=== PATIENT | female | born 1945 | race Caucasian/White ===

== ENCOUNTER 2024-12-10 11:53 | Observation (INO) ==
--- NOTE | 2024-12-10 12:23 | XRay Report ---
XR chest 1V portable HISTORY: 79 years-old Female Chest pain, nonspecific COMPARISON: None TECHNIQUE: AP view of the chest FINDINGS: Cardiac silhouette is upper limits of normal in size. There is no pneumothorax, pleural effusion or a irspace consolidation. Bones of the chest appear grossly intact. IMPRESSION: No acute process. ACT 112: Negative or not required by law. The above report was generated using voice recognition software. It may contain grammatical, syntax o r spelling errors. Electronically signed by: Geremias Morgan M.D. 12/10/2024 12:21 PM
--- NOTE | 2024-12-10 12:29 | Emergency Department Note ---
Impression & Plan Chest pain ED Provider Note NAME: RYAN KUO AGE: 79 SEX: F : 1945 ARRIVES VIA: Walk-In INFORMANT: Patient, son ED PROVIDER(S): Ranjit Salvador MD CHIEF COMPLAINT: Chest pain MEDICAL DECISION MAKING: Patient presents due to concern for chest pain. Still active at the bedside. IV was established and blood work was obtained. Initial EKG without signs of obvious STEMI. Patient was ordered aspirin and nitro. Patient did have improvement in her pain from a 7 down to a 2. Patient was ordered 1 additional nitro. Given the patient's symptoms I did speak with the on-call hospitalist service I did speak with the resident physician Dr. Cochran with Dr. Villalba. Patient was admitted to the medicine service. Discussion w/ other healthcare providers: Dr. Cochran and Dr. Villalba inpatient medicine service Prior /Outside records reviewed: None Differential diagnosis: Cardiac ischemia, aortic dissection, pulmonary embolism, pneumothorax, pneumonia, pericarditis, myocarditis, GERD, cholecystitis, pancreatitis, musculoskeletal, as well as other pathologies were considered. Diagnostics, as interpreted by me: Patient reports that she did have a mammogram ordered but this has yet to be completed. ECG: Normal sinus rhythm, rate of 78, normal intervals, normal axis no ST elevations. Cardiac monitoring: An order was placed for continuous cardiac monitoring. The monitor shows a rate of 75 with sinus rhythm. Patient was placed on pulse oximetry Medical decision rules: Heart score Imaging studies: I informally interpreted the patient's chest x-ray does not show obvious pneumonia or pneumothorax with formal report to follow. HPI: Patient presents due to concern for chest pains. The patient states that this began about an hour ago while she was walking. The patient described as left-sided heaviness/tightness that did go to her arm and jaw. Patient denies any fevers or chills. No cough. The patient reports that she did have a stress test echo completed in [place] several years ago. The patient does not take any aspirin Plavix or atorvastatin. The patient does follow locally with [facility]. The patient does take S-Citalopram and GERD. The patient was unsure as to whether or not this was from her prior history of reflux. Patient denies any leg swelling or calf pain. No recent surgeries procedures or hospitalizations no recent prolonged car or plane travel. Patient reports that she typically will walk 7 kilometers daily. PAST MEDICAL HISTORY: See Below PAST SURGICAL HISTORY: See Below SOCIAL HISTORY: See Below HOME MEDICATIONS: See Below ALLERGIES: See Below VITALS: See Below PHYSICAL EXAMINATION: GENERAL: NAD, non-toxic. EYE EXAM: Normal conjunctiva. PERRL, no anisocoria and EOM's grossly intact w/o pain. OROPHARYNX: Moist mucus membranes, grossly normal dentition. NECK: Trachea midline, no stridor. Supple, no nuchal rigidity, no adenopathy, non-tender. No signs of meningismus. FROM of the neck with good chin to chest and neck extension. LUNGS: Clear to auscultation. Normal chest wall mechanics. HEART: NSR, no MRG. ABDOMEN: Abdomen soft, non-tender, no masses, no rebound or guarding. BACK: No CVA TTP. SKIN: No rashes and no bruising. UPPER EXTREMITIES: Upper extremities are grossly normal. LOWER EXTREMITIES: Grossly normal, no edema. Negative Homans' sign bilaterally. NEURO EXAM: Awake and alert, follows commands, no obvious facial asymmetry, normal speech, moves all 4 extremities. Past Med/Surg History Problem List (Updated 12/10/24 @ 18:47 by Ranjit Salvador MD) Chest pain (Acute) Medical History Depression History of herniated intervertebral disc 2021- ? cervical "states had a neck hernia"- full ROM Acid reflux Surgical History Hx of right cataract extraction (08/08/24) Hx of hemorrhoidectomy Hx of knee surgery bilat Social History Smoking Status: Former smoker Tobacco Type: Cigarettes Second Hand Exposure: No; Do You Dip or Chew Tobacco: No; Tobacco Cessation Education Requested by Patient: No Hx Alcohol Use: No Hx Substance Use: No Preferred Language: [place] Islander Communication Ability: greek Grease Man Required: No Beliefs That Will Affect Care: None Current Living Situation: Family Other Information That Helps Us Care for You: No Feels Safe at Home: Yes Safety Concerns: Feels Safe At This Time Assistive Devices: None Allergies Allergies Allergy/AdvReac Type Severity Reaction Status Date / Time No Known Allergies Allergy Verified 09/19/24 12:26 Home Meds Home Medications Medication Instructions Recorded Confirmed escitalopram oxalate 10 mg tablet 10 mg PO QAM 08/02/24 09/05/24 pantoprazole 20 mg tablet,delayed 20 mg PO QAM 08/02/24 09/05/24 release Results & Data (ED) Vital Signs Vital Signs - 24 hr 12/10/24 11:56 12/10/24 12:06 12/10/24 12:12 Temperature 36.4 C L Temperature Source Temporal Artery Scan Pulse Rate 84 Pulse Rate [Left Apical] Respiratory Rate 16 Respiratory Effort / Characteristics Non-Labored Spontaneous Respiratory Depth Normal Respiratory Pattern Blood Pressure [Left Arm] Blood Pressure Mean [Left Arm] Pulse Oximetry 97 95 98 Oxygen Delivery Method Room Air Room Air Room Air Sepsis Recent Fever Within 48 Hours No Sepsis New/Unexplained Change in Mental Status N/A Sepsis Action Taken by Nursing No Action Required 12/10/24 12:29 12/10/24 13:57 12/10/24 14:08 Temperature Temperature Source Pulse Rate 74 Pulse Rate [Left Apical] 69 70 Respiratory Rate 18 16 Respiratory Effort / Characteristics Non-Labored Spontaneous Non-Labored Spontaneous Respiratory Depth Normal Normal Respiratory Pattern Regular Regular Blood Pressure [Left Arm] 138/81 129/84 Blood Pressure Mean [Left Arm] 100 99 Pulse Oximetry 97 92 Oxygen Delivery Method Room Air Room Air Sepsis Recent Fever Within 48 Hours Sepsis New/Unexplained Change in Mental Status Sepsis Action Taken by Residential Medications Current Medication List: was personally reviewed by me Laboratory Data Attestation: I reviewed the patient's lab results. 12/10/24 12:10 12/10/24 12:10 Lab Results 12/10/24 Range/Units 12:10 WBC 4.93 (4.8-10.8) K/ul RBC 4.41 (4.20-5.40) M/uL Hgb 13.6 (12.0-16.0) g/dl Hct 40.7 (37.0-47.0) % MCV 92.3 (80.0-100.0) fL MCH 30.8 (25.0-34.0) pg MCHC 33.4 (32.0-36.0) g/dL RDW Std Deviation 44.4 (36.4-46.3) fL RDW Coeff of Kavitha 13.2 (11.5-14.5) % Plt Count 226 (130-400) K/uL MPV 10.5 (9.4-12.4) fL Immature Gran % (Auto) 0.2 % Neut % (Auto) 60.7 % Lymph % (Auto) 28.6 % [place] % (Auto) 6.7 % Eos % (Auto) 3.4 % Baso % (Auto) 0.4 % Neut # (Auto) 2.99 (1.40-6.50) K/uL Lymph # (Auto) 1.41 (1.20-3.40) K/uL [place] # (Auto) 0.33 (0.11-0.59) K/uL Eos # (Auto) 0.17 (0.00-0.50) K/uL Baso # (Auto) 0.02 (0.00-0.20) K/uL Immature Gran # (Auto) 0.01 (0.01-0.20) K/uL Sodium 140 (136-145) mmol/L Potassium 4.3 (3.5-5.1) mmol/L Chloride 105 (98-107) mmol/L Carbon Dioxide 28 (21-32) mmol/L Anion Gap 7 (3-11) BUN 20 (6-23) mg/dl Creatinine 0.67 (0.6-1.2) mg/dl Est Cr Clr Drug Dosing 69.6 ml/min eGFR 89.96 BUN/Creatinine Ratio 29.9 H (10-20) Glucose 101 H (70-99(Fasting)) mg/dl Calcium 9.7 (8.6-10.3) mg/dl Magnesium 2.1 (1.7-2.4) mg/dl Total Bilirubin 0.5 (0.2-1.0) mg/dl AST 17 (13-39) U/L ALT 16 (7-52) U/L Alkaline Phosphatase 59 (34-104) U/L Troponin I High Sens 4.6 (0-14) pg/ml Total Protein 7.1 (6.0-8.3) gm/dl Albumin 4.5 (3.4-5.0) gm/dl Globulin 2.6 (2.5-4.0) gm/dl Albumin/Globulin Ratio 1.7 (0.9-2) Lipase 24 (11-82) U/L Administered Medications Nitroglycerin (Nitroglycerin Sl 0.4 Mg/Tab Tab) 0.4 mg SL Q5M PRN PRN Reason: Chest Pain Stop: 01/09/25 12:26 Last Admin: 12/10/24 13:58 Dose: 0.4 mg Documented By: [facility] Discontinued Medications Aspirin (Aspirin Chew 324 Mg) 324 mg PO NOW STA Stop: 12/10/24 12:28 Last Admin: 12/10/24 12:34 Dose: 324 mg Documented By: NATALY Nitroglycerin (Nitroglycerin Sl 0.4 Mg/Tab Tab) 0.4 mg SL NOW STA Stop: 12/10/24 12:28 Last Admin: 12/10/24 12:34 Dose: 0.4 mg Documented By: NATALY Imaging Data Radiologist's Impression: Chest X-Ray 12/10/24 12:06 XR chest 1V portable HISTORY: 79 years-old Female Chest pain, nonspecific COMPARISON: None TECHNIQUE: AP view of the chest FINDINGS: Cardiac silhouette is upper limits of normal in size. There is no pneumothorax, pleural effusion or airspace consolidation. Bones of the chest appear grossly intact. IMPRESSION: No acute process. ACT 112: Negative or not required by law. The above report was generated using voice recognition software. It may contain grammatical, syntax or spelling errors. Electronically signed by: Geremias Morgan M.D. 12/10/2024 12:21 PM Discharge Plan Visit Data Chief Complaint: Chest Pain Stated Complaint: CHEST PAIN, LT SHOULDER AND LT ARM ED Provider: Ranjit Salvador Discharge Problem: Chest pain Patient Disposition: Admitted As Inpatient Condition: Good Discharge Instructions Interventions: ED Discharge Assessment Last Done: 12/10/24 16:45 Discharge Problem: Chest pain Qualifiers: Chest pain type: unspecified Qualified Code(s): R07.9 - Chest pain, unspecified
[2024-12-10 12:30] LABS: Basophils # (auto) 0.02 K/uL (0.00-0.20); Basophils % (auto) 0.4 %; Eosinophils # (auto) 0.17 K/uL (0.00-0.50); Eosinophils % (auto) 3.4 %; Hematocrit (blood only) 40.7 % (37.0-47.0); Hemoglobin 13.6 g/dl (12.0-16.0); Immature Granulocytes # (auto) 0.01 K/uL (0.01-0.20); Immature Granulocytes % (auto) 0.2 %; Lymphocytes # (auto) 1.41 K/uL (1.20-3.40); Lymphocytes % (auto) 28.6 %; Mean Corpuscular Hemoglobin 30.8 pg (25.0-34.0); Mean Corpuscular Hgb Conc 33.4 g/dL (32.0-36.0); Mean Corpuscular Volume 92.3 fL (80.0-100.0); Mean Platelet Volume 10.5 fL (9.4-12.4); Monocytes # (auto) 0.33 K/uL (0.11-0.59); Monocytes % (auto) 6.7 %; Neutrophils # (auto) 2.99 K/uL (1.40-6.50); Neutrophils % (auto) 60.7 %; Platelet Count 226 K/uL (130-400); RDW Coefficient of Variation 13.2 % (11.5-14.5); RDW Standard Deviation 44.4 fL (36.4-46.3); Red Blood Count 4.41 M/uL (4.20-5.40); White Blood Count 4.93 K/ul (4.8-10.8)
[2024-12-10] MEDS: ASPIRIN CHEW 324 MG PO STA (12:34)
[2024-12-10] MEDS: NITROGLYCERIN SL 0.4 MG/TAB TAB SL STA (12:34)
[2024-12-10 13:02] LABS: Albumin Globulin Ratio 1.7 (0.9-2); Albumin Level 4.5 gm/dl (3.4-5.0); BUN Creatinine Ratio 29.9 (10-20); Bilirubin,Total 0.5 mg/dl (0.2-1.0); Calcium 9.7 mg/dl (8.6-10.3); Creatinine Clr Calc Pharmacy 69.6 ml/min; Globulin 2.6 gm/dl (2.5-4.0); Magnesium 2.1 mg/dl (1.7-2.4); Potassium 4.3 mmol/L (3.5-5.1); Total Protein 7.1 gm/dl (6.0-8.3)
[2024-12-10 13:07] LABS: Troponin I High Sensitivity 4.6 pg/ml (0-14)
[2024-12-10] MEDS: NITROGLYCERIN SL 0.4 MG/TAB TAB SL PRN (13:58)
--- NOTE | 2024-12-10 14:12 | Electrocardiogram Report ---
Test Reason : Blood Pressure : */* mmHG Vent. Rate : 78 BPM Atrial Rate : 78 BPM P-R Int : 172 ms QRS Dur : 76 ms QT Int : 392 ms P-R-T Axes : 48 -15 55 degrees QTcB Int : 446 ms Normal sinus rhythm Possible Left atrial enlargement Otherwise Normal ECG No previous ECGs available Confirmed by Quentin Breen ([id number]) on 12/10/2024 2:12:06 PM Referred By: REFERRED SELF Confirmed By: Quentin Breen
--- NOTE | 2024-12-10 15:26 | History & Physical Report ---
Date of Service December 10, 2024 Assessment & Plan (1) Chest pain: (2) Acid reflux: Plan Pt is a 79 yo female with PMH of GERD and depression who presented to ED with 9/10 left sided anterior chest pain that radiated to left shoulder, arm and back. Pt was given nitroglycerin in ED, which reduced patient symptoms. Vitals have been stable. Initial labs have returned normal, including troponin. Repeat troponin is pending. ECG was notable to left atrial enlargement. Pt's pain has i mproved, but is more localized to posterior left shoulder/scapular with accompanying muscle tension. #Chest pain Pt presenting with exertional chest pain that was responsive to nitroglycerine. Pt 's initial troponin and ECG is reassuring, however, pt remains with risk factor of age. Pt has no history of cardiac or lung conditions, indications of infectious causes, or symptoms consistent with DVT. CXR is benign. Last echo was several years ago in [place]. Pt does not follow with cardiology. - Ordered repeat troponin, will follow - Ordered stress echo - Consider lipid panel, A1c #GERD Pt denies current heart burn. Taking pantoprazole at home - Continue pantroprazole PO Chronic conditions: Depression- Continue escitalopram PO Dispo: Med tele-observation Diet: Regular Code: Full History of Present Illness Chief Complaint: Chest pain Primary Care Provider: Gabriela Chacko DO Pt is a 79 yo female with PMH of GERD and depression who presented to ED with 9/10 left sided anterior chest pain that radiated to left shoulder, arm and back. Pt describes the pain at stabbing. Pain was accompanied by shaking and sweating. Pt denies nausea, vomiting, headache, dizziness, or syncope. At pre sent, pt states chest pain is minimal and primarily at shoulder blade and muscles inferior to scapula. Pt denies recent URI cough, congestion, LE swelling or le pain. Pt denies hx of heart or lung problems. She had a UTI in the last 2 weeks that was treated with antibiotics as well as a bladder US. She denies family hx of heart disease. Pt has a remote history of tobacco smoking, quit more than 50 yrs ago. Pt denies alcohol or recreational drug use. Allergies Allergy/AdvReac Type Severity Reaction Status Date / Time No Known Allergies Allergy Verified 09/19/24 12:26 Home Medications Medication Instructions Recorded Confirmed Type escitalopram oxalate 10 mg tablet 10 mg PO QAM 08/02/24 09/05/24 History pantoprazole 20 mg tablet,delayed 20 mg PO QAM 08/02/24 09/05/24 History release Past Med/Surg History Problem List (Updated 12/10/24 @ 15:50 by Cleo Cochran DO) Chest pain Medical History Depression History of herniated intervertebral disc 2021- ? cervical "states had a neck hernia"- full ROM Acid reflux Surgical History Hx of right cataract extraction (08/08/24) Hx of hemorrhoidectomy Hx of knee surgery bilat Social History Smoking Status: Former smoker Tobacco Type: Cigarettes Second Hand Exposure: No; Do You Dip or Chew Tobacco: No; Tobacco Cessation Education Requested by Patient: No Hx Alcohol Use: No Hx Substance Use: No Preferred Language: [facility] Communication Ability: panamanian Card Fixer Required: No Beliefs That Will Affect Care: None Current Living Situation: Family Other Information That Helps Us Care for You: No Feels Safe at Home: Yes Safety Concerns: Feels Safe At This Time Assistive Devices: None Review of Systems Review of Systems: As per HPI Physical Exam Physical Exam: Gen: Pt sitting up in bed, NAD HEENT: normocephalic, PERRL, trachea midline, no lymphadenopathy Cardio: RRR, S1/S2, no murmurs appreciated, 2 +radial pulses Chest: Sternum and anterior ribs non tender. Muscle tension noted at bilateral upper trapezius muscles and left>right rhomboids. Left scapula elevated compared to right. Respiratory: Normal work of breathing on RA, CTAB Abd: nondistended, soft, non tender, normoactive BS Extremities: moving all 4 extremities on command, grossly 5/5 strength. No LE edema noted Skin: warm, dry, no rashes noted on exposed skin Neuro: A&O x 3, mood congruent Results & Data Results & Data Vital Signs (Past 12 Hours) Vital Signs Temp Pulse Pulse Resp BP Pulse Ox O2 Del Method 12/10/24 14:08 70 16 129/84 92 Room Air 12/10/24 13:57 69 18 138/81 97 Room Air 12/10/24 12:29 74 12/10/24 12:12 98 Room Air 12/10/24 12:06 95 Room Air 12/10/24 11:56 36.4 C L 84 16 97 Room Air Laboratory Results Abnormal lab results 12/10/24 Range/Units 12:10 BUN/Creatinine Ratio 29.9 H (10-20) Glucose 101 H (70-99(Fasting)) mg/dl Diagnostic Findings Chest X-Ray 12/10/24 12:06 XR chest 1V portable HISTORY: 79 years-old Female Chest pain, nonspecific COMPARISON: None TECHNIQUE: AP view of the chest FINDINGS: Cardiac silhouette is upper limits of normal in size. There is no pneumothorax, pleural effusion or airspace consolidation. Bones of the chest appear grossly intact. IMPRESSION: No acute process. ACT 112: Negative or not required by law. The above report was generated using voice recognition software. It may contain grammatical, syntax or spelling errors. Electronically signed by: Geremias Morgan M.D. 12/10/2024 12:21 PM Supervising Physician Co-Signing Physician Notes I personally examined the patient and verified hood points of history and exam, discussed case, and agree with decision making and plan documented by Dr. Cochran. Patient is a 79-year-old female with past medical history of GERD and depression on admission for chest pain. Patient reports she was walking today and experienced heavy substernal chest pain with radiation to left arm with associated shaking. Patient reports she saw PCP 2 days ago for sharp left axillary and lateral breast pain of 1 week duration; PCP ordered diagnostic mammo and ultrasound which has not been completed yet. Patient comfortable, lungs clear b/l to auscultation, regular rate and rhythm, no abdominal tenderness, no acute distress. Agree with ACS rule out given exertional symptoms. Resident Activity Tracking Resident Involvement: Resident Care Provided Care Provided: Adult Hospital Medicine
[2024-12-10] MEDS ORDERED: ONDANSETRON INJ 2 MG/ML 2 ML VIAL IV PRN (17:35)
[2024-12-10] MEDS ORDERED: MELATONIN 3 MG TAB PO PRN (17:35)
[2024-12-10] MEDS ORDERED: POLYETHYLENE (MIRALAX) 17 GM PACK PO PRN (17:35)
[2024-12-10] MEDS ORDERED: ACETAMINOPHEN 325 MG TAB PO PRN (17:35)
[2024-12-11] MEDS: PANTOprazole 40 MG TAB PO SCH (08:35)
[2024-12-11] MEDS: ESCITALOPRAM OXALATE 10 MG TAB PO SCH (08:35)
--- OUTSIDE RECORDS SUMMARY | 2024-12-11 10:20 | External Medical Summary | Continuity of Care Document ---
Author Name Unknown Organization [address] Address [address] [place] [address] [place], [place] [id number] Care Team Providers Care Junior Administrative Assistant Name Role Phone Gabriela De Jesus Primary Care [facility] [id number] [id number] Date(s): 12/08/24 - 12/08/[address] [place] [address], [address] [place] [address] [phone] Encounter Diagnosis Abdominal pain(Discharge Diagnosis) - 12/08/24 Axillary pain(Discharge Diagnosis) - 12/08/24 Discharge Disposition: Home or Self Care Attending Physician: Cain Chacko DO, Mariana Annette Referring Physician: Cain Chacko DO, Mariana Annette Encounter Type: Clinic Allergies, Adverse Reactions, Alerts No Known Allergies Assessment and Plan Extracted from: Title:Office Visit Note Author:Cain Chacko DO, Mariana Annette Date:12/08/24 1. Abdominal pain Improving pending CT 2. Axillary pain will get Dx mammogram and US Immunizations Given and Recorded Vaccine Date Status Refusal Reason influenza virus vaccine, inactivated 1 05/31/24 Gi bobby zoster vaccine, inactivated 2, 3 05/10/24 Given zoster vaccine, inactivated 03/08/24 Given 1Early/Late Reason: Early/Late Reason: Clinic schedule 2Early/Late Reason: Early/Late Reason: Other : on time 3Result Comment: Rosa M Malik Ma Medications Lexapro 10 mg oral tablet Start: 03/08/24 8:47:00 AM EDT, 1 tab, PO, Daily, Disp# 90 tab, Refills: 3, [facility]acy: [id number] Start Date: 03/08/24 Status: Ordered Quantity: 90.0 Unit: tab Repeat number: 4 naproxen 375 mg (as sodium) oral tablet, extended release Start: 04/20/24 9:46:00 AM EDT, 2 each, PO, Daily, PRN: as needed for arthritis Start Date: 04/20/24 Status: Ordered Repeat number: 1 Protonix 20 mg oral delayed release tablet Start: 03/08/24 8:47:00 AM EDT, 1 tab, PO, Daily, Disp# 90 tab, Refills: 3, Pharmacy: [facility] [id number] Start Date: 03/08/24 Status: Ordered Quantity: 90.0 Unit: tab Repeat number: 4 Pyridium 100 mg oral tablet Start: 11/13/24 10:42:00 AM EDT, 1 tab, PO, tid, Disp# 30 tab, with food, PRN: as needed for urinarydiscomfort, Pharmacy: [facility] Start Date: 11/13/24 Status: Ordered Quantity: 30.0 Unit: tab Repeat number: 1 Mental Status 12/08/24 Barriers to Learning one year None evide nt Mandatory Health Literacy Documentation Yes Health Literacy Communication Barriers N ever Primary Language Telugu Problem List Condition Confirmation Course Effective Dates Status Health St atus Informant Vaginal atrophy Confirmed Active Basal cell carcinoma (BCC) of skin of nose Confirmed Active Depression Confirmed Active Epidermal cyst Confirmed Active GERD without esophagitis Confirmed Active Seborrheic keratoses Confirmed Active Shoulder pain Confirmed Active Thyroid nodule Confirmed Active Vitamin D deficiency Confirmed Active Diagnosis Diagnosis Type Effective Dates Health Status Cl inical Service Informant Abdominal pain Discharge Diagnosis 12/08/24 Non-Specified Axillary pain Discharge Diagnosis 12/08/24 Non-Specified Procedures Procedure Date Related Diagnosis Body Site Status Mohs micrographic surgery 10/30/24 Completed Shave biopsy 1 07/20/24 Completed Hemorrhoidectomy Complete d History of knee surgery C ompleted 1left nasal alar crease Vital Signs Most recent to oldest [Reference Range]: 1 Patient Weight 70.6 kg (12/08/24 9:12 AM) Temperature [36.5-37.9 DegC] 36.7 DegC (12/08/24 9:12 AM) Blood Pressure 122/70mmHg (12/08/24 9:12 AM) Cuff Pulse Pressure 52 mmHg (12/08/24 9:12 AM) Social History Social History Type Response Smoking Status Never smoked cigaret kiesha Sex Female Sex Representation Female (finding) FCM Outpt Note * Cain Ginna Gabriela: PERFORM Event Display: FCM Outpt Note Authored Date: [id number] Chief Complaint Pt here for f/u History of Present Illness Presents for f/u on abdominal pain endorses lower abdominal/suprapubic pain, states it does not feel like constipation had UA and UCx that were negative, denies abnormal vaginal discharge Hx of chronic constipation but does not always have discomfort, takes psyllium husk daily. Feels like her BMs are adequate. Feels like a pulling on the lower abdomen. Pelvic US showing calcified uterine fibroids, otherwise unremarkable. Last colonoscopy was ~ 8 years ago in [place] and states was normal She has a pending CT abdomen She endorses a new problem, left sided rib or breast pain she gets a sharp pain on the left axilla/rib area, pain is sharp, constant ongoing for 6 days has been taking tylenol w/o improvement last mammo ~ 2 years ago Physical Exam Vitals & Measurements T: 36.7 °C BP: 122/70 SpO2: 98% WT: 70.600 kg (Dosing) WT: 70.6 kg PHQ2 Data (Data Documented on:12/08/2024 09:12) Emotional health assessment NEGATIVE General: _Alert and oriented, No acute distress Cardiovascular: _Normal rate, Regular rhythm, No murmur, No gallop. Respiratory: _Lungs are clear to auscultation, Respirations are non-labored, Breath sounds are equal Gastrointestinal: _Soft, Non-tender, Non-distended, Normal bowel sounds. Breast: left axillary TTP, no breast lumps or TTP, no skin changes Assessment/Plan 1. Abdominal pain Improving pending CT 2. Axillary pain will get Dx mammogram and US Attestation Time spent: Pre-visit planning: _4 [id number]-gc-[id number] visit: _16 Post-visit (orders/documentation/coordination of care): 4 Total visit time: _24 Problem List/Past Medical History Ongoing Basal cell carcinoma (BCC) of skin of nose Depression Epidermal cyst GERD without esophagitis Seborrheic keratoses Shoulder pain Thyroid nodule Vaginal atrophy Vitamin D deficiency Procedure/Surgical History •Mohs micrographic surgery| Service Date: 10/30/2024•Shave biopsy| Service Date: 07/20/2024•History of knee surgery•Hemorrhoidectomy Medications escitalopram(Lexapro 10 mg oral tablet), 10 mg= 1 tab, PO, Daily, 3 refills naproxen(naproxen 375 mg (as sodium) oral tablet, extended release), 750 mg= 2 each, PO, Daily, PRN pantoprazole(Protonix 20 mg oral delayed release tablet), 20 mg= 1 tab, PO, Daily, 3 refills phenazopyridine(Pyridium 100 mg oral tablet), 100 mg= 1 tab, PO, tid, PRN Allergies NKA Social History Smoking Status Never smoked cigarettes Alcohol Use:Current Type:Wine Frequency:1-2 times per month Exercise - Comments: walks 2-3 miles a day Tobacco - Denies Tobacco Use Intake (IView) Smoking History Cigarette smoker: Never smoked cigarettes Tobacco Product Use: Never used other tobacco products Family History Cancer: Mother. Glaucoma: Mother. Heart attack: Father. Thyroid cancer: Mother. Health Status Family Member(s) Immunizations Vaccine Date Status influenza virus vaccine, inactivated 05/31/2024 Given Comments : Early/Late Reason: Clinic schedule zoster vaccine, inactivated 05/10/2024 Given Comments : Early/Late Reason: Other : on time Rosa M Malik Ma zoster vaccine, inactivated 03/08/2024 Given Recommendations Health Maintenance Pending (in the next year) Due Adult Social Determinants of Health Screening due 12/08/24 Unknown Frequency Adult Tdap/Td Vaccine due 12/08/24 Unknown Frequency Hepatitis C Screening due 12/08/24 One-time only Medicare Annual Wellness Visit due 12/08/24 and every 1 year Osteoporosis Screening due 12/08/24 One-time only Pneumococcal Vaccine Older Adults due 12/08/24 One-time only Seasonal COVID 19 Vaccine due 12/08/24 Unknown Frequency Due In Future Adult Influenza Vaccine not due until 01/23/25 and every 1 year Satisfied (in the past 1 year) Satisfied Adult Influenza Vaccine on 05/31/24. Satisfied by ELIZABETH Mitchell Carli Body Mass Index on 11/20/24. Satisfied by ELIZABETH Lyons Kathryn Lipid Screening on 04/06/24. Satisfied by [employer], [id number] Shingles Vaccine on 08/14/24. Satisfied by ELIZABETH De La Cruz Angela Electronic Signature on File Electronically Reviewed/Signed by: Gabriela Chacko DO Author Signature Dt/Tm:12/08/2024 02:10 PM Department of Family Medicine MAF Patient Care team information Care Team Personnel Name: Cain Chacko DO, Mariana Annette Position: Physician - Family Med Member Role: Primary Care Provider Address: [address] [place] [address] Telecom: [phone] Insurance Providers Guarantor name: RYAN KUO Health Plan Information #: 1 Payer: [facility]ICA[facility] Member Number: [id number] Policy Number: NA Group Number: [id number] Payer Identifier: [id number] Health Plan Information #: 2 Payer: [facility] MEDICA[facility] Member Number: [id number] Policy Number: NA Group Number: NA Payer Identifier: [id number] Health Plan Information #: 3 Payer: KIMMIE COLLAZO Member Number: NA Policy Number: NA Group Number: NA Payer Identifier: [id number]"
--- NOTE | 2024-12-11 12:34 | Discharge Summary ---
Date of Service December 11, 2024 Admission HPI Per Admitting Provider Pt is a 79 yo female with PMH of GERD and depression who presented to ED with 9/10 left sided anterior chest pain that radiated to left shoulder, arm and back. Pt describes the pain at stabbing. Pain was accompanied by shaking and sweating. Pt denies nausea, vomiting, headache, dizziness, or syncope. At present, pt states chest pain is minimal and primarily at shoulder blade and muscles inferior to scapula. Pt denies recent URI cough, congestion, LE swelling or le pain. Pt denies hx of heart or lung problems. She had a UTI in the last 2 weeks that was treated with antibiotics as well as a bladder US. She denies family hx of heart disease. Pt has a remote history of tobacco smoking, quit more than 50 yrs ago. Pt denies alcohol or recreational drug use. Principal Diagnosis Chest pain Discharge Exam Gen: Pt sitting up in bed, NAD HEENT: normocephalic, PERRL, trachea midline, no lymphadenopathy Cardio: RRR, S1/S2, no murmurs appreciated, 2 +radial pulses Chest: Sternum and anterior ribs non tender. Respiratory: Normal work of breathing on RA, CTAB Abd: nondistended, soft, non tender, normoactive BS Extremities: moving all 4 extremities on command, grossly 5/5 strength. No LE edema noted Skin: warm, dry, no rashes noted on exposed skin Neuro: A&O x 3, mood congruent Discharge Data Allergies Allergy/AdvReac Type Severity Reaction Status Date / Time No Known Allergies Allergy Verified 09/19/24 12:26 Consultations 12/10/24 13:40 ED Decision to Admit Stat Hospital Course (1) Chest pain: (2) Acid reflux: Plan Pt is a 79 yo female with PMH of GERD and depression who presented to ED with 9/10 left sided anterior chest pain that radiated to left shoulder, arm and reza k. Pt was given nitroglycerin in ED, which reduced patient symptoms. Vitals have been stable. Initial labs have returned normal, including troponin. Repeat troponin is pending. ECG was notable to left atrial enlargement. Pt's pain has improved, but is more localized to posterior left shoulder/scapular with accompanying muscle tension. #Chest pain Pt presenting with exertional chest pain that was responsive to nitroglycerine. Pt 's initial troponin and ECG is reassuring, however, pt remains with risk factor of age. Pt has no history of cardiac or lung conditions, indications of infectious causes, or symptoms consistent with DVT. CXR is benign. Last echo was several years ago in [place]. Pt does not follow with cardiology. - Ordered repeat troponin 4.6 --> 4.8 - Ordered stress echo - Consider lipid panel, A1c #GERD Pt denies current heart burn. Taking pantoprazole at home - Continue pantroprazole PO Chronic conditions: Depression- Continue escitalopram PO Dispo: Med tele-observation Diet: Regular Code: Full Total Time Total Time Spent Total Time Spent (In Minutes): <30 Discharge Plan Discharge Items Patient Disposition: Home - Self-Care Reason For Visit: CHEST PAIN Discharge Diagnosis: Chest pain Condition on Discharge: Good Activity: Per Instructions section Non-emergency contact: Primary Care Provider Call non-emergency contact if: your symptoms worsen Follow-up/Referrals: Gabriela De Jesus DO [Primary Care Provider] - 12/19/24 9:05 am Diet: Heart Healthy Addtl Attending Provider Instructions: You were admitted for chest pain brought on by activity. We tested your blood for cardiac enzymes, obtained an electrocardiogram, and sent you for an stress test/ echocardiogram. All results indicate that your heart is not the cause your your chest pain. You may resume your home medications. We are not prescribing any new medications at this time. At this time, we recommend that your follow up with your primary care physician in the next 7-10 days. Return to the emergency department if your chest pain returns. Pending Studies at Discharge: No Stand-Alone Forms: [facility] [employer], Smoking Cessation Medications and DC Order Prescriptions: Continued pantoprazole 20 mg Tablet,Delayed Release (Dr/Ec) 20 mg PO QAM escitalopram oxalate 10 mg Tablet 10 mg PO QAM Discharge Orders: Discharge Order (Routine); Ordered 12/11/24 Ordered By: Cleo Cochran Admission Data Admit Date/Time: 12/10/24 15:23 Attending Provider: Jalil Hansen Admit Provider: Cleo Cochran Primary Care Provider: Gabriela De Jesus Other Providers: Micaela Villalba Supervising Physician Co-Signing Physician Notes I personally examined the patient and verified all hood points of history and exam, discussed case, and agree with decision making with Dr Cochran Feeling better. Has not had chest pain today. Did well on stress testcardiology contacted me to let me know test was negative for ischemic findings. Patient would very much like to go home. She notes that she does have reflux at times and wondered if this was reflux, but noted that it felt different. On directed questioning she endorses a sharp/stabbing sensation which raises the possibility of rib muscle spasm. Vitals noted, in general she is awake and alert pleasant no distress. HEENT normocephalic atraumatic mucous membranes moist. Breathing unlabored no accessory muscle use good effort. Skin without rashes pallor or icterus. Neuro without focal deficits. Chest painMI ruled out with reassuring EKG and negative troponins; unstable angina extremely unlikely given the characteristic of the pain (stabbing sounding more consistent with rib muscle spasm, and she also does have a longstanding history of reflux) as well as her negative stress echo. Safe/stable for home. Outpatient follow-up. Resident Activity Tracking Resident Involvement: Resident Care Provided Care Provided: Adult Hospital Medicine
--- NOTE | 2024-12-11 12:48 | Billing Data ---
Date of Service December 11, 2024 Coding Level of Care Code 83023 IN/OBS DISCH 30 MIN/LESS
--- NOTE | 2024-12-11 13:53 | XCELERA ---
[id number]
== END 2024-12-11 14:15 | disposition home or self-care (01) ==
LOC: ED 11:53 → 2N 11:53 → SUATTDRO 15:23 → 2N 16:45